=== PATIENT | male | born 1960 | race Caucasian/White ===

== ENCOUNTER → 2019-01-29 | Outpatient (CLI) | payer OTHER ==
[~2019-01-29] MED LIST: LOSARTAN-HCTZ1 EAC1 PO
[2019-02-03 12:45] LABS: COPROPORPHYRIN (CP) I 92 ug/L (Undefined); COPROPORPHYRIN (CP) III 99 ug/L (Undefined); HEPTACARBOXYL (7-CP) 1006 ug/L (Undefined); HEXACARBOXYL (6-CP) 38 ug/L (Undefined); PENTACARBOXYL (5-CP) 119 ug/L (Undefined); UROPORPHYRINS (UP) 896 ug/L (Undefined)
== END | disposition home or self-care (01) ==
LOC: LAB 09:49 → LAB SHORT 09:49 → EDSTATUS 10-20 10:20 → LAB FUT 10-20 10:20
PROVIDERS: Student in an Organized Health Care Education/Training Program
DX: R21 Rash and other nonspecific skin eruption (principal); R74.8 Abnormal levels of other serum enzymes
CPT/HCPCS: 81050; 84120

== ENCOUNTER 2019-02-16 08:33 | Day surgery (SDC) | payer OTHER ==
[~2019-02-16] VITALS: Ht 193 cm; Wt 102.4 kg
== END 2019-02-16 10:37 | disposition home or self-care (01) ==
LOC: ORSCSDS 08:33
PROVIDERS: Student in an Organized Health Care Education/Training Program
PROC: 0DB68ZX Excision of Stomach, Via Natural or Artificial Opening Endoscopic, Diagnostic (ICD-10-PCS; principal; 2019-02-16 09:45)
DX: K74.60 Unspecified cirrhosis of liver (principal); B96.81 Helicobacter pylori [H. pylori] as the cause of diseases classified elsewhere; R79.89 Other specified abnormal findings of blood chemistry; B18.2 Chronic viral hepatitis C; K29.50 Unspecified chronic gastritis without bleeding; K76.6 Portal hypertension; I10 Essential (primary) hypertension; Z87.891 Personal history of nicotine dependence; Z79.899 Other long term (current) drug therapy
CPT/HCPCS: 88305; 88342; J7120